=== PATIENT | male | born 1945 | race Native Hawaiian/Other Pacific Islander ===

== ENCOUNTER 2022-11-19 18:06 | Emergency (ER) | payer OTHER ==
[~2022-11-19] VITALS: Ht 167.6 cm; Wt 59.0 kg
[2022-11-19 18:33] LABS: PLATELET COUNT 242 K/uL (142-355)
[2022-11-19 18:39] LABS: POTASSIUM 3.6 mmol/L (3.6-5.2)
[2022-11-19] MEDS ORDERED: ZYPREXA ZYDI5 MG PO (20:16)
[2022-11-19] MEDS ORDERED: TEMA15CA19 PO (20:17)
[2022-11-19] MEDS ORDERED: BUSP5TAB2 PO (20:18)
[2022-11-19] MEDS ORDERED: NEURONTIN 100M100 MG PO (20:19)
[2022-11-19] MEDS ORDERED: MEMA10TA2 PO (20:21)
[2022-11-19] MEDS ORDERED: VENL37.54 PO (20:22)
[2022-11-19] MEDS ORDERED: DIVA250T PO (20:24)
== END 2022-11-19 19:20 | disposition still patient (30) ==
LOC: ED 18:06
PROVIDERS: Emergency Medicine
DX: F25.8 Other schizoaffective disorders (principal); F03.911 Unspecified dementia, unspecified severity, with agitation; Z11.52 Encounter for screening for COVID-19; Z04.6 Encounter for general psychiatric examination, requested by authority
CPT/HCPCS: 36415; 80053; 85027; 87635; 93005; 99283; U0003

== ENCOUNTER 2022-12-23 21:15 | Emergency (ER) | payer OTHER ==
[~2022-12-23] VITALS: Ht 167.6 cm; Wt 59.0 kg
[2022-12-23 21:15] VITALS: BP 136/86; TEMP 98.7
[~2022-12-23 21:15] MED LIST: BUSP5TAB2 PO; CHOL100034 PO; DIVALPROEX125 MG PO; DIVALPROEX250 MG PO; GABA100C2 PO; MAGNSUS68 PO; MEMA10TA2 PO; NEURONTIN 100M100 MG PO; OLANZAPINE5 MG PO; TEMA15CA19 PO; VENL37.54 PO; ZYPREXA ZYDI5 MG PO
[2022-12-23 21:46] LABS: PLATELET COUNT 197 K/uL (142-355)
[2022-12-23 21:55] LABS: POTASSIUM 3.8 mmol/L (3.6-5.2)
[2022-12-24] MEDS ORDERED: VITAMIN D1000 UNI1 PO (08:23)
[2022-12-24] MEDS ORDERED: BUSPIRONE10 MG PO (08:27)
[2022-12-24] MEDS ORDERED: DIVALPROEX250 M1 PO (08:29)
[2022-12-24] MEDS ORDERED: ZYPREXA ZYDI5 MG PO (08:30)
[2022-12-24] MEDS ORDERED: MILK OF MA400 MG/5 M PO (08:31)
== END 2022-12-23 23:30 | disposition still patient (30) ==
LOC: ED 21:15
PROVIDERS: Emergency Medicine Emergency Medical Services
DX: R45.6 Violent behavior (principal); F03.90 Unspecified dementia, unspecified severity, without behavioral disturbance, psychotic disturbance, mood disturbance, and anxiety; Z02.79 Encounter for issue of other medical certificate
CPT/HCPCS: 36415; 80053; 85027; 87635; 93005; 99283; U0003